=== PATIENT | female | born 1995 ===

== ENCOUNTER 2017-09-02 11:06 | Emergency (ER) | payer MEDICAID, OTHER ==
[2017-09-02 11:07] VITALS: BMI 28.3
[2017-09-02 11:42] VITALS: BP 132/78; PULSE 81; RESP 18; TEMP 98.1; O2SAT 99
--- NOTE | 2017-09-02 11:52 | ED PDOC ---
Arrival/HPI - General Historian: Patient - History of Present Illness Time/Duration: < week Symptom Onset: Gradual - General Chief Complaint: Abnormal Skin Integrity Time Seen by Provider: 09/02/17 11:08 - History of Present Illness Narrative History of Present Illness (Text): 22 year old female with no significant PMH presents with 2 day history of rash on left buttocks area. Patient states it has been very itchy and she has been scratching it. Denies fever, chills, sick contacts, any other complaints at this time. 09/02/17 11:50 (Mark Hartman) Past Medical History - Provider Review Nursing Documentation Reviewed: Yes - Infectious Disease Hx of Infectious Diseases: None - Psychiatric Hx Substance Use: No - Anesthesia Hx Anesthesia: No Family/Social History - Physician Review Nursing Documentation Reviewed: Yes Family/Social History: No Known Family HX Smoking Status: Light Smoker < 10 Cigarettes Daily Hx Alcohol Use: No Hx Substance Use: No Allergies/Home Meds Allergies/Adverse Reactions: Allergies No Known Allergies Allergy (Verified 09/02/17 11:42) Review of Systems - Review of Systems Constitutional: Normal Eyes: Normal ENT: Normal Respiratory: Normal Cardiovascular: Normal Gastrointestinal: Normal Genitourinary Female: Normal Musculoskeletal: Normal Skin: Rash Neurological: Normal Endocrine: Normal Hemo/Lymphatic: Normal Psychiatric: Normal Physical Exam Vital Signs Reviewed: Yes Temperature: Afebrile Blood Pressure: Normal Pulse: Regular Respiratory Rate: Normal Appearance: Positive for: Well-Appearing, Non-Toxic, Comfortable Pain Distress: None Mental Status: Positive for: Alert and Oriented X 3 - Systems Exam Head: Present: Atraumatic, Normocephalic Pupils: Present: PERRL Extroacular Muscles: Present: EOMI Conjunctiva: Present: Normal Ears: Present: Normal Mouth: Present: Moist Mucous Membranes Pharnyx: Present: Normal Nose (External): Present: Atraumatic Nose (Internal): Present: Normal Inspection Neck: Present: Normal Range of Motion Respiratory/Chest: Present: Clear to Auscultation. No: Respiratory Distress Cardiovascular: Present: Regular Rate and Rhythm, Normal S1, S2 Abdomen: No: Tenderness Skin: Present: Warm (herpes zoster rash on left buttocks), Rashes, Erythematous , Other Psychiatric: Present: Alert, Oriented x 3 Vital Signs Temp Pulse Resp BP Pulse Ox 09/02/17 12:16 98.1 F 81 18 132/78 99 09/02/17 12:13 98.1 F 81 18 132/78 99 09/02/17 11:40 98.1 F 81 18 132/78 99 Medical Decision Making ED Course and Treatment: Acyclovir -DC with Acyclovir RX and to follow up with PMD 09/02/17 11:55 (Mark Hartman) 09/02/17 14:36 pt seen with resident. vesicular rash in dermtomal pattern consider shingles vs herpes vs other vesicular rash vitals stable. advise outpt fu with acylovir rx ( Raswant,Vamshi) - Medication Orders Current Medication Orders: Discontinued Medications Acyclovir (Zovirax) 800 mg PO ONCE ONE PRN Reason: Protocol Stop: 09/02/17 11:50 Last Admin: 09/02/17 12:09 Dose: 800 mg Disposition/Present on Arrival - Present on Arrival Any Indicators Present on Arrival: No History of DVT/PE: No History of Uncontrolled Diabetes: No Urinary Catheter: No History of Decub. Ulcer: No History Surgical Site Infection Following: None - Disposition Have Diagnosis and Disposition been Completed?: Yes Disposition Time: 11:57 - Disposition Diagnosis: Shingles Disposition: HOME/ ROUTINE Condition: GOOD Discharge Instructions (ExitCare): Shingles (ED), Shingles (DC), Shingles (GEN) Additional Instructions: Please take medication 5 times a day for 7 days. Please follow up with PMD in office. Prescriptions: Acyclovir [Zovirax] 800 mg PO 5XD #35 tablet Referrals: Johny Lake MD [Primary Care Provider] - Forms: [employer] (Malay)
== END 2017-09-02 12:15 | disposition home or self-care (01) ==
LOC: ED 11:06
DX: B02.9 Zoster without complications (principal)